=== PATIENT | male | born 1955 | race Caucasian/White ===

== ENCOUNTER 2016-11-04 18:15 | Observation (INO) | payer OTHER ==
[~2016-11-04] VITALS: Ht 188 cm; Wt 152.9 kg
[~2016-11-04 18:15] MED LIST: APIX5TAB PO; DOXY100C2 PO; FLEC100T2 PO; HYDR-4003 PO; LOVA20TA PO; MAGN64TA7 PO; METF500T4 PO; METO25TA6 PO; MV,M1TAB2 PO; TAMS0.4C98 PO
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
[2016-11-04] MEDS ORDERED: MAGN400T23 PO (19:21)
[2016-11-04] MEDS ORDERED: LANS30CA14 PO (19:21)
[2016-11-04 19:38] LABS: BASOPHILS % (AUTO) 0.7 % (0-3); EOSINOPHILS % (AUTO) 5.1 % (0-5); MONOCYTES % (AUTO) 8.2 % (4-12); Mean Corpuscular Hemoglobin 29.3 pg (27.0-35.0); Mean Corpuscular Volume 89.7 fL (81-100); NEUTROPHILS % (AUTO) 66.1 % (40-74); Platelet Count 185 bil/L (150-400)
--- NOTE | 2016-11-04 19:42 | DRSVH ---
PROCEDURE: X-RAY CHEST ONE VIEW, PORTABLE ([id number]) INDICATIONS: chest pain TECHNIQUE: One view of the chest was acquired. COMPARISON: [facility], , CHEST 2 VIEW, 08/04/2016, 17:06. FINDINGS: Surgical changes and devices: Left chest wall dual-lead pacemaker is stable in position. Lungs and pleura: No pleural effusions or pneumothorax. Lungs are clear. Mediastinum: Mediastinal contours appear normal. Heart size is enlarged. Bones and chest wall: No suspicious bony lesions. Overlying soft tissues appear unremarkable. IMPRESSION: 1. No acute cardiopulmonary disease. Dictated by: Deniz Nicole M.D. on 11/04/2016 at 19:41 Approved by: Deniz Nicole M.D. on 11/04/2016 at 19:41
[2016-11-04 19:44] LABS: INR 0.91 ratio
[2016-11-04 20:02] LABS: TROPONIN T < 0.010 ug/L (0.0-0.011)
[2016-11-04 20:08] LABS: Magnesium 1.4 mg/dL (1.6-2.6)
[2016-11-04 20:29] VITALS: BP 152/90; PULSE 72; RESP 16; O2SAT 100
[2016-11-04] MEDS ORDERED: Magnesium Sulf 2 Gm/50mL Water 2 GM in IV Premix 1 EACH IV ONE (20:30)
[2016-11-04] MEDS ORDERED: Ondansetron 2 mg/mL 2 mL Inj IVPUSH PRN (21:00)
[2016-11-04] MEDS ORDERED: Polyethylene Glycol (PEG) 17 Gm Powder PO PRN (21:00)
[2016-11-04] MEDS ORDERED: Alum-Mag Hydrox-Simeth 30 mL Suspension PO PRN (21:00)
[2016-11-04 21:37] VITALS: BP 133/64; PULSE 73; RESP 22; O2SAT 97
[2016-11-04 22:45] VITALS: BP 145/89; PULSE 70; RESP 18; O2SAT 95
--- NOTE | 2016-11-04 23:04 | PCM.HPMED ---
Subjective Date of Service Nov 04, 2016 Primary Provider: Admitting Physician: Primary Care Physician: Jim Nguyen MD Attending Physician: Chief Complaint: shortness of breath and palpitations History of Present Illness: 61-year-old male with past medical history remarkable for cardiac ablation and pacer placement, sick sinus syndrome, A. fib/flutter, diabetes type II who presents with a three day history of worsening shortness of breath with exertion and heart palpitations as well as a general sense of unease without chest pain. The patient states that he notices the shortness of breath when climbing stairs. He denies any cough, chest congestion, sore throat, fever or generally feeling sick otherwise. The patient stated that he does have a 45pack year history of smoking but quit approximately a year and a half ago. The patient states that he has had a thorough pulmonary workup by a process machine operator in [place] and this workup was negative for any pathology. The patient denies any chest pain or jaw discomfort during the last three days but mentions however that he has had jaw discomfort in the past, the last time being 10 days prior when his pacer was interrogated and before that during his cardiac angiogram. His pacer interogation showed some atrial fibrillation per Patient also reports a headache which is occurring more frequently since his pacer was initially placed. This gentleman has had an extensive cardiac workup over the last 6 months including one cardiac angiogram done after a abnormal stress test at [facility] by Dr. Farrell, and two cardiac echoes the last being in July 2016. The patient reiterates that his coronary arteries were clean and his heart is strong. His last echo showed an EF of 55-60% and was unchanged from the previous echo in March 2016. The patient states that he was told that the pacemaker placement could potentially help with the shortness of breath which has been a problem over the last 6 months however he is not noticed any improvement. Review of Systems: a comprehensive review of systems was obtained and all were negative except for what is included in the HPI above Allergies Coded Allergies: Penicillins (Verified Allergy, Intermediate, BREATHING DIFFICULTY, 04/28/16) TAPE (Verified Allergy, Mild, RASH, 04/28/16) cortisone (Verified Allergy, Mild, RASH, 04/28/16) Contrast Media (Verified Adverse Reaction, Severe, "feeling of heart cramps", 07/27/16) during heart cath, resolved within seconds. No reaction to contrast during MRI Home Medications Apixiban 5mg PO BID Flecainide 100mg PO BID Prevacid 30mg daily Lovastatin 20mg PO HS Magnesium Oxide 800mg PO BID Metformin 100mg PO BID Metoprolol 25mg BID Tamsulosin 0.4mg PO daily Dr. Collazo's note from 04/17 mention patient was taking lisinopril and HCTZ however recent [facility] records from the cardiology make no mention of these drugs discuss with Patient in the AM as he did not mention these drugs during the interview. Multivitamin PMH Diabetes Mellitus type two hypertension hyperlipidemia obstructive sleep apnea osteoarthritis history of bladder cancer atrial fibrillation/flutter with tachybradycadia syndrome history of ablation with pacer placement on Eliquis History of DVT Surgical History Ablation with pacer placement Bladder cancer hernia repair bilateral knee arthroplasty Family History Grandfather in his 30s of unknown heart condition Father had unknown heart condition Mother Stroke Social History Occupation: works at [employer] Hx Alcohol Use: No (previous alcoholic quit 9 years ago, heavy drinker previously ) Hx Substance Use: No Hx Tobacco Use: Yes Smoking Status: Former Smoker (45 pack year history quit a year and half ago) Years of Smokin Living Arrangement: with Family (in [place]) Exam Vital Signs Vital Sign - Last Date Time Temp Pulse Resp B/P Pulse Ox O2 Delivery O2 Flow Rate FiO2 11/04/16 20:29 72 16 152/90 100 Room Air Exam General: Middle age obese male in no acute distress Eyes: PERRLA, EOMI, sclera injection bilaterally HENT: MMM, without central cyanosis, narrow oropharynx, no rhinorrhea noted, no post nasal drip, no cobblestoning mucoa NEck: Trachia midline, no carotid bruits, no jvd, no thyromegaly no thyroid nodules CV: irregularly irregular rhythm consistent with PAC/PVC, no murmurs rubs or gallops noted, no S3/S4, no heaves or thrills Lungs: CTAB without wheezing rales or rhonchi Abdomen: normoactive bowel sounds, nondistended, tympanic to percussion, no pain on palpation, exam was limited by body habitus Ext: Pretibial edema worse on left than right, surgical scars noted at knees and left ankle, pulse intact at radial and dorsalis pedis bilaterally Skin: Non blanchable petechial Rash noted at medial aspect of left ankle, patient states that its been there for several weeks, and actually is chronic coming and going with time Neuro: CN II-XII grossly intact without focal deficits Psych: Normal mood and affect : no solares in place Lab and Diagnostics Result Diagram: 11/04/16191411/04/161914 X-Rays, CTs and MRIs PROCEDURE: X-RAY CHEST ONE VIEW, PORTABLE ([id number]) IMPRESSION: 1. No acute cardiopulmonary disease. Dictated by: Deniz Nicole M.D. on 11/04/2016 at 19:41 Approved by: Deniz Nicole M.D. on 11/04/2016 at 19:41 Cardiac Echo Impressions Echocardiogram Report Interpretation Summary The left ventricle is grossly normal size. Overall left ventricular systolic function is preserved. The right ventricle is normal in size and function. There is a pacemaker lead in the right ventricle. There is no pericardial effusion. Assessment & Plan 61-year-old male with past medical history remarkable for cardiac ablation and pacer placement, sick sinus syndrome, A. fib/flutter, diabetes type II who presents with a three day history of worsening shortness of breath with exertion and heart palpitations as well as a general sense of unease without chest pain. 1. shortness of breath, acute on chronic - oxygen saturation is good, chest xray negative for PNA, likely due to a dysrhythmia given description of recent palpitations - DDx include afib/flutter, diastolic heart failure less likely given xrays and recent echo, less likely COPD exacerbation given symptoms, less likely PE given Eliquis 2. paroxysmal Atrial Fibrillation/Flutter, chronic - Patient has a previous pacer placement, cardiology was called by ED provider and plan to have tech interrogate the pacer tomorrow (medical team confirm in AM ), medical team to decide on cardiology consult depending on interrogation results - continue outpatient Eloquis, Metoprolol, and Flecainide - magnesium replaced in ED, recheck levels in am, restart oral mag replacement - check phos levels in the am - initial troponin negative will repeat after 6 hours 3. hypomagnasemia, chronic - IV Mag given in ED - continue oral outpatient mag replacement - recheck levels in the am - patient was on Prevacid however note from Dr. Rivera of nephrology describes stopping PPI and starting PEPCID due to hypomagnesemia, patient had some confusion and had not stopped this medication, discussed and patient is aware to DC Prevacid in the future 4. hypertension, chronic - patient restarted on Metoprolol - Dr. Collazo's note from 04/17/2016 mention patient was taking lisinopril and HCTZ at the time however recent [facility] records from the cardiology make no mention of these drugs. Discuss with Patient in the AM as he did not mention these drugs during the interview. 5. Diabetes Mellitus type 2, chronic - diabetic diet - will continue Metformin in the hospital given no signs of infection or cause of lactic acidosis lactic acidosis - patient is likely only observation with possible impending discharge tomorrow 6. Obstructive Sleep Apnea, chronic - patient left CPAP at home - Nurse to keep O2 >92% - Possible supplemental O2 7. Hyperlipidemia, chronic - heart healthy diet - restart statin tomorrow 8. likely benign prostate hypertrophy, chronic - continue outpatient Tamsulosin tomorrow 9. gastroesophageal reflux disease, chronic - Pepcid available PRN - patient was on Prevacid however note from Dr. Rivera of nephrology describes stopping PPI and starting PEPCID due to hypomagnesemia, patient had some confusion and had not stopped this medication, discussed and patient is aware to DC Prevacid in the future 10. CKD stage 2, chronic - recheck BMP Bowel regime available Code Status - Full code Disposition: Patient is admitted under observation, with expected length of stay less that two midnights, likely to discharge home tomorrow after pacer interrogation by tech. Pain Evaluation: Adequate Pain Control GI Prophylaxis: H2 david VTE Prophylaxis Indicated: Meets Criteria for Anticoag Therapy VTE Prophylaxis: Other (on elequis) Resuscitation Status: CPR: Attempt Resuscitation Attending Statement The patient was seen and examined together with Dr. Macias on 11/04/16 and I agree with the history, exam and plan as outlined in the note above. CHRISTINA MACIAS DO Nov 04, 2016 21:13 Nico Rosenthal MD Nov 05, 2016 02:26
--- NOTE | 2016-11-05 01:38 | NUR ---
Arrival to Unit/ LLE Patient arrived to floor at approx 2230 via gurney from ED. Patient was able to ambulate independently to hospital bed. Patient is A&OX3, and pleasant. IV SL in left forearm. PAGEANT DIRECTOR applied and 2LO2 via NC worn at HS due to high DOE score. Patient denied the need for a hospital CPAP, and stated that " some oxygen will be enough." Tele monitor has been applied. BG one touch was 129. LLE Patient presents with pitting edema of LLE, and a purplish rash/ bruise on the ankle. Patient states that 20+ years ago he had a clot in his left leg and ever since, he occasionally gets this discoloration and swelling from time to time. Patient states that it is rare for the right extremity to get edema. Patient denies pain or warmth in the calf. Will continue to monitor, and continue Q1 hour checks.
[2016-11-05 03:04] VITALS: BP 126/76; PULSE 69; RESP 20; O2SAT 99
[2016-11-05 04:53] VITALS: PULSE 72
[2016-11-05 06:00] VITALS: PULSE 70
[2016-11-05 06:14] LABS: Mean Corpuscular Hemoglobin 29.1 pg (27.0-35.0); Mean Corpuscular Volume 89.2 fL (81-100)
[2016-11-05 06:39] LABS: Magnesium 1.7 mg/dL (1.6-2.6); Phosphorus 4.5 mg/dL (2.5-4.9)
--- NOTE | 2016-11-05 10:01 | NUR ---
Social Work: Screen D: Per EMR review, pt is a 61 year old male admitted for SOB, Palpitations. Pt is [facility]. PCP Is Jim Nguyen MD. NOK is Emili Mccauley, spouse. Readmit score not entered at this time. Advanced directives information provided to pt by FOREST BI[employer] PROFESSOR. Pt lives at home in [place] with his spouse. He is I at baseline. No needs or barriers identified at this time. Pt remains I during admission. Pt discussed in morning rounds, pt awaiting pacer check and possible cardiology consult if necessary. MD agrees pt requires no d/c needs at this time. A: Pt who is I at baseline. P: Anticipate pt to discharge home via POV once medically stable; FOREST BI[employer]ET[employer] PROFESSOR to continue to follow and assist if needs arise. KEIRA Taylor
[2016-11-05 10:13] VITALS: PULSE 70
[2016-11-05 12:46] VITALS: BP 125/78; PULSE 70; RESP 18; O2SAT 96
--- NOTE | 2016-11-05 14:48 | PCM.PNMED ---
Subjective Date of Service Nov 05, 2016 Subjective He is calmly waiting for his pacemaker interrogation, apparently to occur today. There is no SOB or presyncope today or since admission. He wants his health back, to feel like he did before all this started, and wonders why the pacemaker didn't fix all of that. He has a very active job at the [employer]. Exam Vital Signs Vital Sign - Last Date Time Temp Pulse Resp B/P Pulse Ox O2 Delivery O2 Flow Rate FiO2 11/05/16 06:00 70 11/05/16 03:04 36.4 20 126/76 99 Room Air Exam Heart: RRR without murmur Lungs: CTAB Ext: No ankle Edema Abdomen: Obese Lab and Diagnostics Result Diagram: 11/05/16 0520 11/05/16 0520 X-Rays, CTs and MRIs PROCEDURE: X-RAY CHEST ONE VIEW, PORTABLE ([id number]) IMPRESSION: 1. No acute cardiopulmonary disease. Dictated by: Deniz Nicole M.D. on 11/04/2016 at 19:41 Approved by: Deniz Nicole M.D. on 11/04/2016 at 19:41 Cardiac Echo Impressions Echocardiogram Report Interpretation Summary The left ventricle is grossly normal size. Overall left ventricular systolic function is preserved. The right ventricle is normal in size and function. There is a pacemaker lead in the right ventricle. There is no pericardial effusion. Assessment & Plan 61-year-old male with past medical history remarkable for cardiac ablation and pacer placement, sick sinus syndrome, A. fib/flutter, diabetes type II who presented yesterday with a three day history of worsening shortness of breath with exertion and heart palpitations as well as a general sense of unease without chest pain. 1. shortness of breath, acute on chronic - oxygen saturation is good, chest xray negative for PNA, likely due to a dysrhythmia given description of recent palpitations - DDx include afib/flutter, diastolic heart failure less likely given xrays and recent echo, less likely COPD exacerbation given symptoms, less likely PE given Eliquis 2. paroxysmal Atrial Fibrillation/Flutter, chronic - Patient has a previous pacer placement, cardiology was called by ED provider and plan to have tech interrogate the pacer tomorrow (medical team confirm in AM ), medical team to decide on cardiology consult depending on interrogation results - continue outpatient Eliquis, Metoprolol, and Flecainide - magnesium replaced in ED, normal at 1.7 today - Serial Troponin levels less than 0.01 3. hypomagnasemia, chronic - IV Mag given in ED - continue oral outpatient mag replacement - patient was on Prevacid however note from Dr. Rivera of nephrology describes stopping PPI and starting PEPCID due to hypomagnesemia, patient had some confusion and had not stopped this medication, discussed and patient is aware to DC Prevacid in the future 4. hypertension, chronic - patient restarted on Metoprolol 5. Diabetes Mellitus type 2, chronic - diabetic diet - will continue Metformin in the hospital given no signs of infection or cause of lactic acidosis lactic acidosis - patient is likely only observation with possible discharge soon 6. Obstructive Sleep Apnea, chronic - patient left CPAP at home - Nurse to keep O2 >92% - Possible supplemental O2 7. Hyperlipidemia, chronic - heart healthy diet - restart statin tomorrow 8. likely benign prostate hypertrophy, chronic - continue outpatient Tamsulosin 9. gastroesophageal reflux disease, chronic - Pepcid available PRN - patient was on Prevacid however note from Dr. Rivera of nephrology describes stopping PPI and starting PEPCID due to hypomagnesemia, patient had some confusion and had not stopped this medication, discussed and patient is aware to DC Prevacid in the future 10. CKD stage 2, chronic - recheck BMP Bowel regime available Code Status - Full code Disposition: Patient is admitted under observation, with expected length of stay less that two midnights, likely to discharge home tomorrow after pacer interrogation by tech. GI Prophylaxis: H2 david VTE Prophylaxis: Other (on elequis) Resuscitation Status: CPR: Attempt Resuscitation Chapis Quiñones MD Nov 05, 2016 07:39
[2016-11-05 15:40] VITALS: BP 147/88; PULSE 70; RESP 18; O2SAT 96
--- NOTE | 2016-11-05 16:36 | PCM.DIMED ---
Discharge Instructions Date of Service Nov 05, 2016 Dates of Hospitalization Nov 04, 2016 at 21:42 Discharge Diagnosis Discharge Diagnosis Shortness of Breath Normally Functioning Pacemaker Diet Heart Healthy Activity No restrictions Call your provider Fever or Chills, Shortness of breath, Chest pain Patient Instructions Follow-up Provider: Cammy Collazo MD Follow-up with PCP in: 1 week Chapis Quiñones MD Nov 05, 2016 16:35
--- NOTE | 2016-11-05 17:17 | NUR ---
Discharged Pt received discharge instruction and was discharge. Pt has no questions or complaints of discomfort. Pt left ambulating with . Pt was seen by MD and Nurse prior to discharge. All lines and wires were removed prior to discharge. Pt left with belongings
--- NOTE | 2016-11-05 17:59 | PCM.DC.MED ---
Discharge Summary Date of Service Nov 05, 2016 Dates of Hospitalization Date of Hospital Admission Nov 04, 2016 at 21:42 Date of Discharge: Nov 05, 2016 Providers: Admitting Physician: Nico Rosenthal MD Primary Care Physician: Jim Nguyen MD Attending Physician: Nico Rosenthal MD Diagnosis at Time of Discharge Diagnosis at Time of Discharge Shortness of Breath Normally Functioning Pacemaker 2. paroxysmal Atrial Fibrillation/Flutter, chronic 3. hypomagnasemia, chronic 4. hypertension, chronic 5. Diabetes Mellitus type 2, chronic 6. Obstructive Sleep Apnea, chronic 7. Hyperlipidemia, chronic 8. likely benign prostate hypertrophy, chronic 9. gastroesophageal reflux disease, chronic 10. CKD stage 2, chronic Consultations Phone and in person conversations and data review with Dr. Foss Procedures XRay, CTs & MRIs PROCEDURE: X-RAY CHEST ONE VIEW, PORTABLE ([id number]) IMPRESSION: 1. No acute cardiopulmonary disease. Dictated by: Deniz Nicole M.D. on 11/04/2016 at 19:41 Approved by: Deniz Nicole M.D. on 11/04/2016 at 19:41 Cardiac Echo Impression Echocardiogram Report Interpretation Summary The left ventricle is grossly normal size. Overall left ventricular systolic function is preserved. The right ventricle is normal in size and function. There is a pacemaker lead in the right ventricle. There is no pericardial effusion. Brief History 61-year-old male with past medical history remarkable for cardiac ablation and pacer placement, sick sinus syndrome, A. fib/flutter, diabetes type II who presents with a three day history of worsening shortness of breath with exertion and heart palpitations as well as a general sense of unease without chest pain. The patient states that he notices the shortness of breath when climbing stairs. He denies any cough, chest congestion, sore throat, fever or generally feeling sick otherwise. The patient stated that he does have a 45pack year history of smoking but quit approximately a year and a half ago. The patient states that he has had a thorough pulmonary workup by a tire mold tester in [place] and this workup was negative for any pathology. The patient denies any chest pain or jaw discomfort during the last three days but mentions however that he has had jaw discomfort in the past, the last time being 10 days prior when his pacer was interrogated and before that during his cardiac angiogram. His pacer interogation showed some atrial fibrillation per Patient also reports a headache which is occurring more frequently since his pacer was initially placed. This gentleman has had an extensive cardiac workup over the last 6 months including one cardiac angiogram done after a abnormal stress test at [facility] by Dr. Farrell, and two cardiac echoes the last being in July 2016. The patient reiterates that his coronary arteries were clean and his heart is strong. His last echo showed an EF of 55-60% and was unchanged from the previous echo in March 2016. The patient states that he was told that the pacemaker placement could potentially help with the shortness of breath which has been a problem over the last 6 months however he is not noticed any improvement. Hospital Course 1. shortness of breath, acute on chronic - oxygen saturation is good, chest xray negative for PNA, likely due to a dysrhythmia given description of recent palpitations - DDx include afib/flutter, diastolic heart failure less likely given xrays and recent echo, less likely COPD exacerbation given symptoms, less likely PE given Eliquis 2. paroxysmal Atrial Fibrillation/Flutter, chronic - Patient has a previous pacer placement, Pacer function was normal, per Dr. Foss's conversation with the pacer tech today. - continue outpatient Eliquis, Metoprolol, and Flecainide - magnesium replaced in ED, normal at 1.7 today - Serial Troponin levels less than 0.01 3. hypomagnasemia, chronic - IV Mag given in ED - continue oral outpatient mag replacement - patient was on Prevacid however note from Dr. Rivera of nephrology describes stopping PPI and starting PEPCID due to hypomagnesemia, patient had some confusion and had not stopped this medication, discussed and patient is aware to DC Prevacid in the future 4. hypertension, chronic - patient restarted on Metoprolol 5. Diabetes Mellitus type 2, chronic - diabetic diet - will continue Metformin 6. Obstructive Sleep Apnea, chronic - Resume CPAP 7. Hyperlipidemia, chronic - heart healthy diet - restarted statin 8. likely benign prostate hypertrophy, chronic - continue outpatient Tamsulosin 9. gastroesophageal reflux disease, chronic - Pepcid available PRN - patient was on Prevacid however note from Dr. Rivera of nephrology describes stopping PPI and starting PEPCID due to hypomagnesemia, patient had some confusion and had not stopped this medication, discussed and patient is aware to DC Prevacid in the future 10. CKD stage 2, chronic See todays exam description in the progress note from today. Exam Vital Signs (Last) Date Time Temp Pulse Resp B/P Pulse Ox O2 Delivery O2 Flow Rate FiO2 11/05/16 15:40 36.9 70 18 147/88 96 Room Air Test 11/04/16 19:15 11/05/16 05:20 11/05/16 07:53 Neutrophils (%) (Auto) 66.1% (40-74) Lymphocytes (%) (Auto) 19.7% (14-46) Monocytes (%) (Auto) 8.2% (4-12) Eosinophils (%) (Auto) 5.1% (0-5) Basophils (%) (Auto) 0.7% (0-3) Prothrombin Time 9.7sec (8.1-12.5) Prothromb Time International Ratio 0.91ratio Total Bilirubin 0.2mg/dL (0.0-1.2) Aspartate Amino Transf (AST/SGOT) 31U/L (0-50) Alanine Aminotransferase (ALT/SGPT) 53U/L (0-44) Alkaline Phosphatase 87U/L (25-160) Total Protein 7.2g/dL (6.4-8.4) Albumin 3.9g/dL (3.4-5.0) Thyroid Stimulating Hormone (TSH) 3.520uIU/mL (0.450-4.500) Hold Rayo Top Tube Received (Received) White Blood Count 8.0th/mm3 (3.8-10.1) Red Blood Count 4.53mil/mm3 (4.40-5.80) Hemoglobin 13.2g/dL (13.8-17.2) Hematocrit 40.4% (41.0-50.0) Mean Corpuscular Volume 89.2fL (81-100) Mean Corpuscular Hemoglobin 29.1pg (27.0-35.0) Mean Corpuscular Hemoglobin Concent 32.7% (32.0-37.0) Red Cell Distribution Width 13.4% (12.3-15.4) Platelet Count 177bil/L (150-400) Sodium Level 137mEq/L (134-144) Potassium Level 4.8mEq/L (3.5-5.2) Chloride Level 101mEq/L (97-108) Carbon Dioxide Level 24mmol/L (18-29) Blood Urea Nitrogen 25mg/dL (8-27) Creatinine 1.36mg/dL (0.76-1.27) Estimat Glomerular Filtration Rate 57mL/min (>59) Glucose Level 149mg/dL (60-99) Calcium Level 9.4mg/dL (8.5-10.1) Phosphorus Level 4.5mg/dL (2.5-4.9) Magnesium Level 1.7mg/dL (1.6-2.6) Troponin T < 0.010ug/L (0.0-0.011) Discharge Medications Discharge Medications Apixaban (Eliquis) 5 Mg Tablet 5 MG PO BID Prescribed by: REHAN JUNG MD Flecainide Acetate (Flecainide Acetate) 100 Mg Tablet 100 MG PO BID Prescribed by: HENNA RODRÍGUEZ Lansoprazole DR (Prevacid) 30 Mg Capsule 30 MG PO DAILY (Reported) Lovastatin (Lovastatin) 20 Mg Tablet 20 MG PO HS (Reported) Magnesium Oxide (Mag-Oxide) 400 Mg Tablet 800 MG PO BID (Reported) Metformin (Metformin) 500 Mg Tablet 1,000 MG PO BID (Reported) Metoprolol Tartrate (Metoprolol Tartrate) 25 Mg Tablet 25 MG PO BID (Reported) Tamsulosin (Flomax) 0.4 Mg Capsule 0.4 MG PO DAILY (Reported) Miscellaneous Medications Mv,Minerals/FA/Lycopene/Ginkgo (One Daily For Men 50+ Adv Tab) 1 Each Tablet 1 EACH PO (Reported) Followup Plan Discharge Diet: Heart Healthy Discharge Activity: No restrictions Follow-up Provider: Rehan Jung MD Follow-up with PCP in: 1 week Time spent 32 minutes Chapis Quiñones MD Nov 05, 2016 17:59
== END 2016-11-05 16:45 | disposition home or self-care (01) ==
LOC: SED 18:15 → OSC 21:42
PROVIDERS: ADMIT Hospitalist; ATTEND Hospitalist
DX: R06.02 Shortness of breath (principal); I48.0 Paroxysmal atrial fibrillation; I12.9 Hypertensive chronic kidney disease with stage 1 through stage 4 chronic kidney disease, or unspecified chronic kidney disease; E83.42 Hypomagnesemia; E11.22 Type 2 diabetes mellitus with diabetic chronic kidney disease; G47.33 Obstructive sleep apnea (adult) (pediatric); E78.5 Hyperlipidemia, unspecified; N40.0 Benign prostatic hyperplasia without lower urinary tract symptoms; K21.9 Gastro-esophageal reflux disease without esophagitis; N18.2 Chronic kidney disease, stage 2 (mild); R00.8 Other abnormalities of heart beat; R51 Headache; I49.5 Sick sinus syndrome; Z95.0 Presence of cardiac pacemaker; Z79.01 Long term (current) use of anticoagulants; Z86.711 Personal history of pulmonary embolism; Z79.84 Long term (current) use of oral hypoglycemic drugs; Z86.718 Personal history of other venous thrombosis and embolism; Z85.51 Personal history of malignant neoplasm of bladder; Z87.891 Personal history of nicotine dependence; Z82.3 Family history of stroke

== ENCOUNTER 2017-04-13 01:17 | Day surgery (SDC) | payer OTHER ==
[~2017-04-13] VITALS: Ht 188 cm; Wt 144.6 kg
[~2017-04-13 01:17] MED LIST changes: -DOXY100C2 PO; -HYDR-4003 PO; +LANS30CA14 PO; +MAGN400T23 PO; -MAGN64TA7 PO
[2017-04-13] MEDS ORDERED: Magnesium Sulf 4 Gm/100 mL D5W Premix IV ONE (09:00)
[2017-04-13 09:21] VITALS: BP 132/82; PULSE 67; RESP 18; O2SAT 96
[2017-04-13 10:05] LABS: Magnesium 1.5 mg/dL (1.6-2.6)
[2017-04-13 12:27] VITALS: BP 141/91; PULSE 70; RESP 18; O2SAT 96
--- NOTE | 2017-04-13 12:36 | NUR ---
IV mag pt's labs drawn; mg = 1.5 (pt states this is higher than it has been in months) IV mag infused over 2 hours; pt tolerated well; vss; denies any adverse s/s pt has follow-up with MD with labs prior in the next month edu provided and reviewed re: med and s/s to report; pt verbalizes understanding left unit in stable condition with family
== END 2017-04-13 23:59 | disposition home or self-care (01) ==
LOC: MOCO 01:17
PROVIDERS: ATTEND Internal Medicine
DX: E83.42 Hypomagnesemia (principal)
CPT/HCPCS: 36415; 80048; 83735; 96365; 96366; J3475